=== PATIENT | female | born 1960 | race Caucasian/White ===

== ENCOUNTER 2024-04-16 09:13 | Outpatient (RCR) | payer BC, SELFPAY ==
--- NOTE | 2024-04-16 10:05 | CTCFLWUP_ITS ---
Agustin Henriquez [facility] 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 Underwent ALEX/BSO sentinel lymph node biopsy 07/04/2022. Chemoradiation with carboplatin 4500 centigray to the pelvis and 5540 centigrade to the high risk vag inal region completed 10/28/2022. Post chemo radiation PET 02/27/2023 unremarkable mets or recurrence. Mammogram 09/01/2023 BI-RADS 1 negative. Had colonoscopy which showed some radiation related reaction but no malignancy seen. Using dilator regularly since she is not having regular intercourse. Perform pelvic exam essentially unremarkable. A#1. 1B2 p16 positive endocervical adenocarcinoma with lymphovascular invasion and deep one third st romal invasion ALEX/BSO 07/04/2022. #2. chemoradiation completed 10/28/2022. #3. clinically and radiographically no sign of recurrence. #4. I will see her in 6 months with imaging studies to be performed at that time as well along with the pelvic. Electronically signed by: Heron Corona M.D. 04/16/2024 10:02 AM
== END 2024-04-30 23:59 | disposition home or self-care (01) ==
LOC: SCTC 09:13
PROVIDERS: PCP Family Medicine; Referring Provider Family Medicine; Visit Provider Radiology Therapeutic Radiology
DX: C53.0 Malignant neoplasm of endocervix (principal); Z90.710 Acquired absence of both cervix and uterus; Z90.722 Acquired absence of ovaries, bilateral
CPT/HCPCS: 99213; G0463

== ENCOUNTER → 2024-07-05 | Outpatient (CLI) | payer BC, SELFPAY ==
[2024-07-05 09:36] LABS: Collection Type, Urine Clean Catch
[2024-07-05 10:19] LABS: Basophils % (Auto) 0 % (0-2.5); Eosinophils # (Auto) 0.1 Thou/mm3 (0.0-0.5); Eosinophils % (Auto) 2 % (0-10); Hematocrit 37.8 % (36.0-46.0); Hemoglobin 12.9 g/dL (12.0-16.0); Immature Granulocytes % (Auto) 0 % (0-0); Immature Granulocytes Auto 0.01 Thou/mm3 (0.00-0.00); Lymphocytes # (Auto) 0.9 Thou/mm3 (1.0-4.8); Lymphocytes % (Auto) 20 % (10-50); Mean Corpuscular HGB Conc 34.1 g/dl (31.0-37.0); Mean Corpuscular Hemoglobin 31.4 pg (25.0-35.0); Mean Corpuscular Volume 92 fL (80-100); Monocytes # (Auto) 0.4 Thou/mm3 (0.0-0.8); Monocytes % (Auto) 9 % (0-12); Neutrophils # (Auto) 3.1 Thou/mm3 (1.8-7.7); Neutrophils % (Auto) 69 % (37-80); Nucleated Red Blood Cell % 0 /100 WBC (0); Platelet Count 246 Thou/mm3 (140-440); RDW Standard Deviation 42.2 fL (36.4-46.3); Red Blood Count 4.11 Miln/mm3 (4.00-5.20); White Blood Count 4.5 Thou/mm3 (3.6-11.0)
[2024-07-05 10:27] LABS: Bilirubin,Urine Negative (Negative); Blood,Urine Negative (Negative); Clarity,Urine Clear (Clear/Hazy); Color,Urine Lt-Yellow (Lt Yel-Yel); Culture Indicated,Urine Not Indicated; Glucose, Urine Negative (Negative); Ketones,Urine Negative (Negative); Leukocyte Esterase,Urine Positive (Negative); Nitrite,Urine Negative (Negative); PH,Urine 6.5 (5.0-7.0); Protein,Urine Negative (Neg - Trace); RBC,Urine < 1 /hpf (0-3); Specific Gravity,Urine 1.004 (1.001-1.035); Squamous Epithelial Cell,Urine 1 /hpf (0-5); Urobilinogen,Urine Negative mg/dL (0.0-1.0); WBC,Urine 2 /hpf (0-5)
[2024-07-05 10:36] LABS: Vitamin B12 339 pg/mL (211-911); Vitamin D 25 Hydroxy Total 37.2 ng/mL (7.3-40.2)
[2024-07-05 10:37] LABS: Alanine Aminotransferase 28 U/L (10-49); Albumin, Serum 4.9 gm/dL (3.4-4.8); Alkaline Phosphatase 110 U/L (46-116); Anion Gap 7 (7-16); Aspartate Amino Transferase 23 U/L (0-34); BUN/Creatinine Ratio 16 Ratio (12-20); Bilirubin,Total 0.5 mg/dL (0.3-1.2); Blood Urea Nitrogen 13 mg/dL (9-23); Calcium 10.1 mg/dL (8.3-10.6); Calcium (Corrected) 10.1 mg/dL (8.5-10.1); Carbon Dioxide 29.1 mMol/L (20.0-31.0); Cardiac Risk Estimate 2.8 RATIO (3.7-5.6); Chloride 104 mMol/L (98-107); Cholesterol 219 mg/dL (132-200); Creatinine (Component) 0.8 mg/dL (0.6-1.3); Globulin 2.4 gm/dL (2.3-3.5); Glucose 102 mg/dL (74-106); HDL Cholesterol 77 mg/dL (40-60); LDL Cholesterol,Calculated 115 mg/dL (0-130); Osmolality,Calculated 279 (275-295); Potassium 4.6 mMol/L (3.4-5.1); Sodium 140 mMol/L (136-145); Total Protein 7.3 gm/dL (5.7-8.2); Triglycerides 137 mg/dL (30-150); eGFR > 60 See Note
== END | disposition home or self-care (01) ==
LOC: COPL 09:11
PROVIDERS: PCP Physician Assistant; Referring Provider Physician Assistant; Visit Provider Physician Assistant
DX: Z00.00 Encounter for general adult medical examination without abnormal findings (principal); E55.9 Vitamin D deficiency, unspecified
CPT/HCPCS: 36415; 80053; 80061; 81001; 82306; 82607; 84443; 85025

== ENCOUNTER → 2024-07-11 | Outpatient (CLI) | payer BC, SELFPAY ==
[2024-07-15 07:17] LABS: Fecal Globin Result NOT DETECTED (NOT DETECTED)
== END | disposition home or self-care (01) ==
LOC: SLDO 12:27
PROVIDERS: PCP Physician Assistant; Referring Provider Physician Assistant; Visit Provider Physician Assistant
DX: Z00.00 Encounter for general adult medical examination without abnormal findings (principal); E55.9 Vitamin D deficiency, unspecified
CPT/HCPCS: 82274; G0328

== ENCOUNTER 2024-10-22 08:48 | Outpatient (RCR) | payer BC, SELFPAY ==
--- NOTE | 2024-10-22 09:29 | CTCFLWUP_ITS ---
[facility] 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 Patient with stage Ib 2 p16 positive endocervical adenocarcinoma with lymphovascular invasion and deep one third stromal invasion. Positive for lymph angioinvasion. Underwent ALEX/BSO sentinel lymph node biopsy 07/04/2022. Chemoradiation carboplatin 4500 cGy to the pelvis and 5500 cGy to the high risk vaginal region completed 10/28/2022. Post chemoradiation PET 02/27/2023 unremarkable for mets or recurrence. Mammogram 09/01/2023 BI-RADS 1 negative. Colonoscopy showed radiation related reaction but no malignancy seen Up to date indicates that routine imaging is not recommended for patient who had completed treatments, for early stage cervical cancer with postop PET scan being unremarkable. Patient agrees to continued routine checks including pelvic exam in 4 months time. Electronically signed by: Heron Corona M.D. 10/22/2024 9:26 AM
== END 2024-10-28 23:59 | disposition home or self-care (01) ==
LOC: SCTC 08:48
PROVIDERS: PCP Physician Assistant; Referring Provider Physician Assistant; Visit Provider Radiology Therapeutic Radiology
DX: C53.0 Malignant neoplasm of endocervix (principal); Z90.710 Acquired absence of both cervix and uterus; Z90.722 Acquired absence of ovaries, bilateral; Z92.3 Personal history of irradiation; Z92.21 Personal history of antineoplastic chemotherapy
CPT/HCPCS: 99213; G0463

== ENCOUNTER 2025-02-19 08:56 | Outpatient (RCR) | payer BC, SELFPAY ==
--- NOTE | 2025-02-19 10:16 | CTCFLWUP_ITS ---
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 11 lymph nodes negative; size of tumor was 2.8 cm Positive for lymph angioinvasion. Underwent ALEX/BSO sentinel lymph node biopsy 07/04/2022. Chemoradiation carboplatin 4500 cGy pelvis and 5500 that you are high risk vaginal region completed 10/28/2022. Post treatment PET 02/27/2023 unremarkable for mets or recurrence. Examined patient today, which essentially unremarkable with no sign of recurrence or suspicious masses. Assessment.#1. Stage Ib 2 endocervical adenocarcinoma ALEX/BSO 07/04/2022. #2. chemoradiation completed 10/28/2022. #3. posttreatment PET and subsequent clinic exams unremarkable for recurrence. #4. I will see her back in 6 months. Electronically signed by: Heron Corona M.D. 02/19/2025 10:14 AM
== END 2025-02-28 23:59 | disposition home or self-care (01) ==
LOC: SCTC 08:56
PROVIDERS: PCP Physician Assistant; Referring Provider Physician Assistant; Visit Provider Radiology Therapeutic Radiology
DX: Z08 Encounter for follow-up examination after completed treatment for malignant neoplasm (principal); Z85.42 Personal history of malignant neoplasm of other parts of uterus; Z90.710 Acquired absence of both cervix and uterus; Z90.722 Acquired absence of ovaries, bilateral; Z92.3 Personal history of irradiation; Z92.21 Personal history of antineoplastic chemotherapy
CPT/HCPCS: 99213; G0463